=== PATIENT | female | born 2000 | race Two or more races ===

== ENCOUNTER 2023-10-08 20:37 | Emergency (ER) | payer OTHER ==
[2023-10-08 20:52] VITALS: BMI 39.2
[2023-10-08 22:53] LABS: BASO % 0.4 % (0-2.0); EOS % 0.6 % (0-4.5); HEMATOCRIT 34.5 % (32.4-45.2); HEMOGLOBIN 11.6 GM/dL (10.7-15.3); LYMPH % 39.5 % (8-40); MCHC 33.5 g/dl (32.0-36.0); MEAN CELL VOLUME 83.5 fl (80-96); MEAN PLT VOLUME 7.8 fl (7.5-11.1); MONO % 7.6 % (3.8-10.2); NEUT % 51.9 % (42.8-82.8); PLATELET COUNT 318 10^3/uL (134-434); RBC 4.13 M/mm3 (3.60-5.2); RDW 12.8 % (11.6-15.6); WHITE BLOOD COUNT 4.6 K/mm3 (4.0-10.0)
[2023-10-08 22:55] LABS: EPI CELLS 11 /uL (0-25.1); HYALINE CASTS 0 /uL (0-3.1); PH,URINE 6.5 (5.0-8.0); URINE APPEARANCE CLEAR; URINE BACTERIA 541 /uL (0-1359); URINE BILIRUBIN NEGATIVE (NEGATIVE); URINE COLOR YELLOW; URINE GLUCOSE (UA) NEGATIVE (NEGATIVE); URINE KETONE NEGATIVE (NEGATIVE); URINE LEUK ESTERASE NEGATIVE (NEGATIVE); URINE NITRITE NEGATIVE (NEGATIVE); URINE PROTEIN NEGATIVE (NEGATIVE); URINE RBC 4 /uL (0-23.9); URINE UROBILINOGEN 0.2 mg/dL (0.2-1.0); URINE WBC 16 /uL (0-25.8)
[2023-10-08 23:15] LABS: BLOOD UREA NITROGEN 12.8 mg/dL (7-18); CALCIUM 8.7 mg/dL (8.5-10.1); URINE CRYSTALS MODERATE /hpf
[2023-10-08 23:19] LABS: CREATININE 0.6 mg/dL (0.55-1.3)
[2023-10-08 23:21] LABS: BILIRUBIN,TOTAL 0.2 mg/dL (0.2-1); TOT PROT 7.1 g/dl (6.4-8.2)
[2023-10-09] MEDS ORDERED: CEPHALEXIN MONOHYDRATE 500 MG CAPSULE (UD) ONE (00:28)
[2023-10-09] MEDS ORDERED: ACETAMINOPHEN INJECTION 100 ML IVPB ONE (00:43)
[2023-10-09] MEDS: CEPHALEXIN MONOHYDRATE 500 MG CAPSULE (UD) PO ONE (00:45)
[2023-10-09] MEDS: ACETAMINOPHEN 1000 MG/100 ML BAG IVPB ONE (00:45)
[2023-10-09 01:35] VITALS: BP 109/66; PULSE 82; RESP 18; TEMP 97.2
== END 2023-10-09 01:54 | disposition home or self-care (01) ==
LOC: JER 20:37
PROC: 3E033NZ Introduction of Analgesics, Hypnotics, Sedatives into Peripheral Vein, Percutaneous Approach (ICD-10-PCS; principal; 2023-10-09)
DX: O02.1 Missed abortion (principal); R10.2 Pelvic and perineal pain; O36.4XX0 Maternal care for intrauterine death, not applicable or unspecified
CPT/HCPCS: 36415; 76830-TC; 80053; 81003; 84702; 85025; 86850; 86900; 86901; 87086; 87186; 99284-25; J0131

== ENCOUNTER 2023-10-12 03:19 | Emergency (ER) | payer BC, OTHER ==
[2023-10-12 03:30] VITALS: BP 127/79; PULSE 75; RESP 18; TEMP 98.6; BMI 39.2
== END 2023-10-12 04:18 | disposition left against medical advice (07) ==
LOC: JER 03:19
DX: R10.9 Unspecified abdominal pain (principal)
CPT/HCPCS: 99281-25

== ENCOUNTER 2023-10-12 04:29 | Emergency (ER) | payer BC ==
[2023-10-12 04:38] VITALS: BMI 39.2
[2023-10-12] MEDS ORDERED: ACETAMINOPHEN INJECTION 100 ML IVPB ONE ×2 (04:54)
[2023-10-12] MEDS: ACETAMINOPHEN 1000 MG/100 ML BAG IVPB ONE (04:54)
[2023-10-12 05:19] LABS: BASO % 0.8 % (0-2.0); EOS % 0.2 % (0-4.5); HEMATOCRIT 36.4 % (32.4-45.2); HEMOGLOBIN 12.1 GM/dL (10.7-15.3); LYMPH % 15.1 % (8-40); MCH 28.1 pg (25.7-33.7); MCHC 33.2 g/dl (32.0-36.0); MEAN CELL VOLUME 84.8 fl (80-96); MEAN PLT VOLUME 8.4 fl (7.5-11.1); MONO % 5.8 % (3.8-10.2); NEUT % 78.1 % (42.8-82.8); PLATELET COUNT 339 10^3/uL (134-434); RDW 12.5 % (11.6-15.6); WHITE BLOOD COUNT 9.1 K/mm3 (4.0-10.0)
[2023-10-12 05:27] LABS: INR 1.06 (0.83-1.09); PROTHROMBIN TIME (PATIENT) 12.3 SEC (9.7-13.0)
[2023-10-12 05:29] LABS: ACTIVATED PTT 29.5 SECONDS (25.2-36.5)
[2023-10-12 05:37] LABS: POTASSIUM 4.4 mmol/L (3.5-5.1)
[2023-10-12 05:38] LABS: CALCIUM 8.8 mg/dL (8.5-10.1)
[2023-10-12 05:39] LABS: ALBUMIN 3.5 g/dl (3.4-5.0); BLOOD UREA NITROGEN 9.8 mg/dL (7-18)
[2023-10-12 05:42] LABS: CREATININE 0.8 mg/dL (0.55-1.3)
[2023-10-12 05:44] LABS: BILIRUBIN,TOTAL 0.3 mg/dL (0.2-1); TOT PROT 7.3 g/dl (6.4-8.2)
[2023-10-12 09:58] VITALS: RESP 18; TEMP 98.1
[2023-10-12] MEDS: SODIUM CHLORIDE 1,000 ML IV STA (11:34)
[2023-10-12 15:18] VITALS: BP 110/55; PULSE 85
== END 2023-10-12 15:35 | disposition home or self-care (01) ==
LOC: JER 04:29
PROC: 3E033NZ Introduction of Analgesics, Hypnotics, Sedatives into Peripheral Vein, Percutaneous Approach (ICD-10-PCS; principal; 2023-10-12)
PROC: 3E0337Z Introduction of Electrolytic and Water Balance Substance into Peripheral Vein, Percutaneous Approach (ICD-10-PCS; 2023-10-12)
DX: O03.4 Incomplete spontaneous abortion without complication (principal)
CPT/HCPCS: 36415; 76817-TC; 80053; 84702; 85025; 85610; 85730; 86850; 86900; 86901; 99284-25; J0131

== ENCOUNTER 2024-06-22 04:16 | Day surgery (SDC) | payer BC ==
[2024-06-19 17:34] VITALS: BMI 42.5
[2024-06-22] MEDS ORDERED: LIDOCAINE HCL/PF 2% SDV 5ML VIAL ONE ×2 (09:49→09:52)
[2024-06-22] MEDS ORDERED: PROPOFOL 40 ML ONE (09:50)
[2024-06-22] MEDS ORDERED: MIDAZOLAM HCL 2 MG/2 ML SINGLE DOSE VIAL ONE ×2 (09:50→09:52)
[2024-06-22] MEDS ORDERED: SUCCINYLCHOLINE CHLORIDE 200 MG/10 ML SYRINGE ONE (09:53)
[2024-06-22] MEDS ORDERED: LIDOCAINE 1%/EPI 1:100000 (20 ML MULTI DOSE VIAL) ONE (11:12)
[2024-06-22] MEDS ORDERED: ONDANSETRON 4 MG/2 ML VIAL IVPUSH PRN (11:55)
[2024-06-22] MEDS ORDERED: LACTATED RINGERS SOLUTION 1,000 ML IV SCH (12:00)
[2024-06-22] MEDS ORDERED: ACETAMINOPHEN INJECTION 100 ML ONE (12:10)
[2024-06-22] MEDS: ACETAMINOPHEN 1000 MG/100 ML BAG IVPB ONE (12:11)
[2024-06-22 12:59] VITALS: RESP 20
[2024-06-22 13:41] VITALS: BP 127/84; PULSE 69; TEMP 97.8
== END 2024-06-22 13:35 | disposition home or self-care (01) ==
LOC: JASU-SURG 04:16
PROVIDERS: ATTEND Obstetrics & Gynecology
PROC: 0UBC7ZX Excision of Cervix, Via Natural or Artificial Opening, Diagnostic (ICD-10-PCS; principal; 2024-06-22 11:20)
DX: R87.613 High grade squamous intraepithelial lesion on cytologic smear of cervix (HGSIL) (principal)
CPT/HCPCS: 81025; 88305-TC; 94760; J0131

== ENCOUNTER 2024-09-03 15:01 | Emergency (ER) | payer BC ==
[2024-09-03 15:10] VITALS: BP 101/66; PULSE 84; TEMP 98.6; BMI 43.5
[2024-09-03 17:23] VITALS: RESP 16
[2024-09-03] MEDS ORDERED: ACETAMINOPHEN 500 MG TABLET (FP) ONE (17:28)
[2024-09-03] MEDS: ACETAMINOPHEN 500 MG TABLET (FP) PO ONE (17:31)
[2024-09-03 17:48] LABS: HCG,QUALITATIVE URINE Negative
[2024-09-03 18:13] LABS: URINE APPEARANCE CLEAR; URINE BILIRUBIN NEGATIVE (NEGATIVE); URINE COLOR YELLOW; URINE GLUCOSE (UA) NEGATIVE (NEGATIVE); URINE KETONE NEGATIVE (NEGATIVE); URINE LEUK ESTERASE NEGATIVE (NEGATIVE); URINE NITRITE NEGATIVE (NEGATIVE); URINE PROTEIN NEGATIVE (NEGATIVE); URINE UROBILINOGEN 0.2 mg/dL (0.2-1.0)
[2024-09-03 19:52] LABS: BASO % 0.7 % (0-2.0); EOS % 0.6 % (0-4.5); HEMATOCRIT 36.3 % (32.4-45.2); LYMPH % 34.5 % (8-40); MCH 27.6 pg (25.7-33.7); MCHC 33.1 g/dl (32.0-36.0); MEAN CELL VOLUME 83.4 fl (80-96); MEAN PLT VOLUME 7.8 fl (7.5-11.1); MONO % 10.9 % (3.8-10.2); NEUT % 53.3 % (42.8-82.8); PLATELET COUNT 323 10^3/uL (134-434); RBC 4.35 M/mm3 (3.60-5.2); RDW 14.6 % (11.6-15.6); WHITE BLOOD COUNT 6.2 K/mm3 (4.0-10.0)
[2024-09-03 19:57] LABS: INR 0.99 (0.83-1.09); PROTHROMBIN TIME (PATIENT) 11.4 SEC (9.7-13.0)
[2024-09-03 20:00] LABS: ACTIVATED PTT 32.5 SECONDS (25.2-36.5)
[2024-09-03 20:17] LABS: ALBUMIN 3.5 g/dl (3.4-5.0); CALCIUM 8.9 mg/dL (8.5-10.1)
[2024-09-03 20:18] LABS: BLOOD UREA NITROGEN 15.3 mg/dL (7-18)
[2024-09-03 20:20] LABS: CREATININE 0.7 mg/dL (0.55-1.3)
[2024-09-03 20:22] LABS: BILIRUBIN,TOTAL 0.2 mg/dL (0.2-1); TOT PROT 7.2 g/dl (6.4-8.2)
== END 2024-09-03 20:40 | disposition home or self-care (01) ==
LOC: JER 15:01
DX: N93.9 Abnormal uterine and vaginal bleeding, unspecified (principal); R10.2 Pelvic and perineal pain
CPT/HCPCS: 36415; 76830-TC; 80053; 81003; 84703; 85025; 85610; 85730; 87086; 87186; 99284-25

== ENCOUNTER 2024-09-15 05:42 | Emergency (ER) | payer BC ==
[2024-09-15 05:48] VITALS: BP 125/70; PULSE 99; RESP 17; TEMP 98; BMI 32.5
[2024-09-15] MEDS ORDERED: ALBUTEROL SO4 2.5/IPRATROPIUM 0.5 INH SOL 3 ML VIAL.NEB. NEB ONE ×3 (06:42→07:48)
[2024-09-15] MEDS: ALBUTEROL SO4 2.5/IPRATROPIUM 0.5 INH SOL 3 ML VIAL.NEB. NEB SCH (06:48)
== END 2024-09-15 08:55 | disposition home or self-care (01) ==
LOC: JER 05:42
PROC: 3E0F7GC Introduction of Other Therapeutic Substance into Respiratory Tract, Via Natural or Artificial Opening (ICD-10-PCS; principal; 2024-09-15)
DX: J10.1 Influenza due to other identified influenza virus with other respiratory manifestations (principal); R50.9 Fever, unspecified; R51.9 Headache, unspecified; R05.9 Cough, unspecified; R00.0 Tachycardia, unspecified; R06.02 Shortness of breath; R09.89 Other specified symptoms and signs involving the circulatory and respiratory systems; Z20.822 Contact with and (suspected) exposure to COVID-19
CPT/HCPCS: 0241U-QW; 71046-TC-FY; 84703; 99284-25